=== PATIENT | female | born 1985 | race African-American/Black ===

== ENCOUNTER 2020-04-13 14:24 | Emergency (ER) | payer SELFPAY ==
[2020-04-13] MEDS ORDERED: Ketorolac Tromethamine 30 MG/ML VIAL ONE (15:16)
--- NOTE | 2020-04-13 17:04 | RAD ---
XR Knee Rt 4 View STANDARD HISTORY: Injury, right knee pain FINDINGS: No fracture or dislocation is identified.
== END 2020-04-13 17:53 | disposition home or self-care (01) ==
LOC: ERS 14:24
DX: M25.461 Effusion, right knee (principal); Z87.891 Personal history of nicotine dependence
CPT/HCPCS: 96372; J1885